=== PATIENT | male | born 1975 | race Caucasian/White ===

== ENCOUNTER 2019-09-20 17:46 | Emergency (ER) | payer MEDICAID ==
[~2019-09-20 17:46] MED LIST: LAC PO; LEVO750T2 PO; METF850T PO; [UNRECOGNIZED DRUG - CODE] PO
[2019-09-20] MEDS ORDERED: ACETAMINOPHEN EXTRA STRENGTH 500 MG TAB ONE (18:16)
== END 2019-09-20 21:16 | disposition home or self-care (01) ==
LOC: MED 17:46
DX: G62.9 Polyneuropathy, unspecified (principal); Z98.890 Other specified postprocedural states; Z79.2 Long term (current) use of antibiotics; Z79.899 Other long term (current) drug therapy
CPT/HCPCS: 87804; 93005; 99284

== ENCOUNTER 2020-05-04 20:19 | Emergency (ER) | payer SELFPAY ==
[~2020-05-04] VITALS: Ht 167.6 cm; Wt 83.5 kg
[2020-05-04 21:01] VITALS: BP 143/75
[2020-05-04] MEDS ORDERED: HYDROcodone/APAP 10/325 MG 1 TAB TAB PO STA (21:29)
[2020-05-04 23:00] VITALS: BP 143/75
== END 2020-05-04 23:00 | disposition home or self-care (01) ==
LOC: MED 20:19
DX: S22.31XA Fracture of one rib, right side, initial encounter for closed fracture (principal); Z79.899 Other long term (current) drug therapy; Z79.84 Long term (current) use of oral hypoglycemic drugs; W18.39XA Other fall on same level, initial encounter; Y93.89 Activity, other specified; Y92.89 Other specified places as the place of occurrence of the external cause; Y99.8 Other external cause status
CPT/HCPCS: 71250; 72131; 99285